=== PATIENT | female | born 1980 | race Two or more races ===

== ENCOUNTER 2016-08-26 23:45 | Emergency (ER) | payer MEDICAID ==
[~2016-08-26] VITALS: Ht 167.6 cm; Wt 80.7 kg
[2016-08-27 01:45] VITALS: BP 122/86
[2016-08-27] MEDS ORDERED: NEOMYCIN-BACITRACIN-POLYM 15GM TOP OINT TOP ONE (01:50)
== END 2016-08-27 02:15 | disposition home or self-care (01) ==
LOC: ER 23:52
DX: S01.81XA Laceration without foreign body of other part of head, initial encounter (principal); S80.211A Abrasion, right knee, initial encounter; R42 Dizziness and giddiness; S80.00XA Contusion of unspecified knee, initial encounter; W01.0XXA Fall on same level from slipping, tripping and stumbling without subsequent striking against object, initial encounter; Y93.01 Activity, walking, marching and hiking; Y99.8 Other external cause status; Y92.59 Other trade areas as the place of occurrence of the external cause
CPT/HCPCS: 12013; 70450